=== PATIENT | male | born 1940 | race Caucasian/White ===

== ENCOUNTER 2018-04-08 20:00 | Inpatient (IN) | payer MEDICARE ==
[2018-04-08] MEDS ORDERED: Ondansetron PF 4 MG/2 ML Vial IVP PRN (22:52)
[2018-04-08] MEDS ORDERED: Acetaminophen 325 MG TAB PO PRN (22:52)
[2018-04-08] MEDS ORDERED: Ondansetron ODT 4 MG TAB SL PRN (22:52)
[2018-04-09 00:15] VITALS: BMI 29.7
[2018-04-09] MEDS: cefTRIAXone\\ROCEPHIN 1 GM in Sodium Chloride 0.9% 100 ML IVPB SCH (01:59)
[2018-04-09 05:20] LABS: #Eosinphils 0.1 thou/uL (0.0-0.7); #Lymphocytes 1.2 thou/uL (1.20-3.40); #Neutrophils 6.4 thou/uL (1.40-6.50); %Basophils 0.1 % (0.0-1.0); %Eosinophils 0.9 % (0.0-10.0); %Lymphocytes 13.8 % (21.0-51.0); %Monocytes 11.7 % (0.0-10.0); %Neutrophils 73.6 % (42.0-75.0); Hemoglobin 9.4 g/dL (14.0-18.0); Mean Corpuscular HGB CONC 32.7 g/dL (32.0-36.0); Mean Platelet Volume 6.5 fL (7.4-10.4); Platelet Count 267 thou/uL (130-400); RBC Distribution Width 13.1 % (11.5-14.5); Red Blood Cell (RBC) Count 2.77 mill/uL (4.70-6.10); White Blood Cell (WBC) Count 8.7 thou/uL (4.8-10.8)
[2018-04-09 05:40] LABS: Anion Gap 14 mmol/L (10-20); BUN (Urea Nitrogen) 20 mg/dL (8.4-25.7); Calc. Creatinine Clearance 106 mL/min (70-130); Calcium 8.2 mg/dL (7.8-10.44); Carbon Dioxide 21 mmol/L (23-31); Chloride 108 mmol/L (98-107); Estimated GFR-MDRD Greater than 90; Glucose 85 mg/dL (83-110); Potassium 3.9 mmol/L (3.5-5.1); Sodium 139 mmol/L (136-145)
--- NOTE | 2018-04-09 06:19 | HP ---
PRIMARY CARE PHYSICIAN: Dr. Yash Garza. CODE STATUS: Full code. TIME OF EVALUATION: 9:00 p.m. CHIEF COMPLAINT: Shortness of breath. HISTORY OF PRESENT ILLNESS: This is a 77-year-old male patient with past medical history of Parkinson disease. The patient came to the hospital after having chest pain associated with shortness of breath. Shingles were [id number] with no clear triggers, no alleviating factors. Also, the patient reported that he was spitting up of some blood. Symptoms have been present for the past 2 to 3 days and has been gradually getting worse. REVIEW OF SYSTEMS: CONSTITUTIONAL: No fever, chills, or generalized weakness. RESPIRATORY: The patient has cough, sputum production, shortness of breath. CARDIOVASCULAR: No chest pain or palpitation. GASTROINTESTINAL: No nausea, no vomiting, diarrhea, or abdominal pain. HEARING DOG TRAINER: No dizziness, headache, or feeling lightheaded. GENITOURINARY: No burning on urination. EXTREMITIES: No leg swelling. All other systems were reviewed and negative except for the findings mentioned above. PAST MEDICAL HISTORY: Positive for high cholesterol, Parkinson's, hypertension , and BPH. PAST SURGICAL HISTORY: Colon. PSYCHIATRIC HISTORY: No previous psych history. SOCIAL HISTORY: No drugs, no alcohol, no smoking history. FAMILY HISTORY: Reviewed and noncontributory for current presentation. ALLERGIES: KNOWN ALLERGIES TO PENICILLIN. REPORTED MEDICATIONS: 1. Lovastatin. 2. Ranexa. 3. Metoprolol. 4. Losartan. 5. Amlodipine. 6. Zetia. 7. Carbidopa/levodopa. 8. Amantadine. 9. Tamsulosin. 10. Donepezil. 11. Finasteride. 12. Aspirin. PHYSICAL EXAMINATION: VITAL SIGNS: On presentation, blood pressure 112/67, heart rate 65, respiratory rate was 18, temperature 98, and oxygen saturation was 96 on room air. GENERAL APPEARANCE: The patient is alert, oriented, not in acute distress. HEENT: Eyes, normal conjunctivae. Moist oral mucosa. Anicteric. No JVD. RESPIRATORY: Bilateral air entry. The patient has bilateral rales. No wheezing. Symmetric expansion. CARDIOVASCULAR: Normal rate, regular rhythm. No murmurs. No gallops. No edema. ABDOMEN: Soft. Normal bowel sounds. MUSCULOSKELETAL: Baseline range of motion and strength. No tenderness. SKIN: Warm, intact. No pallor, rash, or redness. EXTREMITIES: Peripheral pulses are present. Capillary refill seems to be intact. NEURO: No evidence of any new focal weakness. Baseline speech. Cranial nerves seems to be intact. PSYCHIATRIC: The patient is in good mood. No anxiety. Oriented, optimal judgment. LABORATORY DATA: Prior to transfer, labs were reviewed. The patient has sodium 140, potassium 4.4, chloride 107, CO2 of 27, anion gap 10, glucose level 93, BUN 21, creatinine 0.9, GFR 103, calcium 9.5. LFTs were negative. White count 10.1, RBC 2.9, hemoglobin 9.9, MCV 100.8, platelet counts 254. DIAGNOSTIC STUDIES: Chest x-ray was reviewed. The patient has right-sided pneumonia. No right rib fracture. ASSESSMENT AND PLAN: The patient was placed in the hospital with the following medical problems; 1. Right lower lobe pneumonia, seen on the chest x-ray. The patient is being started on antibiotics, following the cultures, and adjust treatment as per sensitivity. 2. History of Parkinson disease. The patient will need to restart his Parkinson 's medications, We will reconcile and adjust as needed. 3. Controlled hypertension, reconcile home meds, adjust treatment as needed. 4. History of benign prostatic hyperplasia, reconcile home meds, adjust treatment as needed. 5. Deep venous thromboses prophylaxis. Job ID: [id number] MTDD
[2018-04-09] MEDS: Enoxaparin Sodium 40 MG/0.4 ML SYRINGE SC SCH ×2 (07:45→10:23)
[2018-04-09] MEDS ORDERED: Prevnar 13-Val Conj/PF 0.5 ML SYRINGE IM ONE (09:00)
[2018-04-09] MEDS ORDERED: Bisacodyl 5 MG TAB PO PRN (11:54)
[2018-04-09] MEDS ORDERED: Polyethylene Glycol 3350 17 GM Packet PO PRN (11:54)
[2018-04-09] MEDS: ALPRAZolam 0.25 MG TAB PO PRN ×2 (13:53→22:01)
[2018-04-09] MEDS: Azithromycin 500 MG in Sodium Chloride 0.9% 250 ML 250 ML IVPB SCH (13:55)
[2018-04-09] MEDS ORDERED: Carbidopa/Levodopa 25-100 mg Tablet PO SCH (15:00)
--- NOTE | 2018-04-09 15:30 | PDOC.PN ---
- Subjective Encounter Start Date: 04/09/18 Encounter Start Time: 11:50 Feels some better sitting up. His says he forgets that he can't walk and will walk past his walker then fall. Fell on and hit right side of chest, but was already feeling bad prior to that. Anxiety is not new, but problematic right now. - Objective Resuscitation Status - Order Detail: 04/09/18 00:09 Resuscitation Status Routine Resuscitation Status: FULL: Full Resuscitation Vital Signs & Weight: Vital Signs (12 hours) Temp Pulse Resp BP Pulse Ox 04/09/18 12:35 98.7 F 74 20 114/61 95 04/09/18 11:38 72 20 98 04/09/18 11:15 89 20 95 04/09/18 11:00 26 H 88 L 04/09/18 07:33 98.4 F 74 20 134/76 93 L 04/09/18 04:00 98.7 F 70 20 132/75 93 L Weight Weight 201 lb 4.513 oz Result Diagrams: 04/09/18 04:59 04/09/18 04:59 Phys Exam - Physical Examination Constitutional: NAD Rales and decreased BS at right base. OTW clear. Cardiovascular: RRR, no significant murmur, no rub Gastrointestinal: soft, non-tender, no distention, positive bowel sounds Modest TTP right ant ribs. No bruising. PD tremor. Deviation from normal: Very slightly anxious, but fairly normal. Dx/Plan (1) Pneumonia Code(s): J18.9 - PNEUMONIA, UNSPECIFIED ORGANISM Status: Acute (2) Parkinson disease Code(s): G20 - PARKINSON'S DISEASE Status: Acute (3) Anxiety Code(s): F41.9 - ANXIETY DISORDER, UNSPECIFIED Status: Acute (4) Hypertension Code(s): I10 - ESSENTIAL (PRIMARY) HYPERTENSION Status: Acute (5) Hyperlipidemia Code(s): E78.5 - HYPERLIPIDEMIA, UNSPECIFIED Status: Acute - Plan * Continue IV abx. * Add some xanax. * Resume home meds. * May take his own home meds.
[2018-04-09] MEDS: Amantadine HCl 100 mg Capsule PO SCH ×2 (15:53→20:44)
[2018-04-09] MEDS: Atorvastatin Calcium 40 MG TAB PO SCH (20:44)
[2018-04-09] MEDS: Amlodipine 5 MG TAB PO SCH (20:44)
[2018-04-09] MEDS: Carbidopa/Levodopa CR 50-200 mg Tablet PO SCH (20:45)
[2018-04-09] MEDS: Senokot S 8.6-50 MG TAB PO SCH (20:45)
[2018-04-09] MEDS: Melatonin 3 MG TAB PO SCH (20:45)
[2018-04-09] MEDS: Ezetimibe 10 MG TAB PO SCH (20:45)
[2018-04-09] MEDS: Donepezil HCl 5 MG TAB PO SCH (20:45)
[2018-04-09] MEDS: Finasteride 5 MG TAB PO SCH (20:45)
[2018-04-09] MEDS: Tamsulosin HCl 0.4 MG CAP PO SCH (20:46)
[2018-04-10] MEDS: cefTRIAXone\\ROCEPHIN 1 GM in Sodium Chloride 0.9% 100 ML IVPB SCH (00:50)
[2018-04-10 07:42] LABS: #Eosinphils 0.1 thou/uL (0.0-0.7); #Lymphocytes 1.3 thou/uL (1.20-3.40); #Neutrophils 7.1 thou/uL (1.40-6.50); %Basophils 0.3 % (0.0-1.0); %Eosinophils 1.2 % (0.0-10.0); %Lymphocytes 13.6 % (21.0-51.0); %Monocytes 10.6 % (0.0-10.0); %Neutrophils 74.4 % (42.0-75.0); Hemoglobin 9.6 g/dL (14.0-18.0); Mean Corpuscular HGB CONC 32.4 g/dL (32.0-36.0); Mean Corpuscular Hemoglobin 34.3 pg (27.0-31.0); Mean Platelet Volume 6.5 fL (7.4-10.4); Platelet Count 268 thou/uL (130-400); RBC Distribution Width 12.9 % (11.5-14.5); Red Blood Cell (RBC) Count 2.81 mill/uL (4.70-6.10); White Blood Cell (WBC) Count 9.6 thou/uL (4.8-10.8)
[2018-04-10 07:58] LABS: Anion Gap 13 mmol/L (10-20); BUN (Urea Nitrogen) 18 mg/dL (8.4-25.7); Calc. Creatinine Clearance 105 mL/min (70-130); Calcium 8.5 mg/dL (7.8-10.44); Carbon Dioxide 23 mmol/L (23-31); Chloride 107 mmol/L (98-107); Estimated GFR-MDRD Greater than 90; Glucose 92 mg/dL (83-110); Sodium 139 mmol/L (136-145)
[2018-04-10] MEDS: Amantadine HCl 100 mg Capsule PO SCH ×3 (08:49→20:43)
[2018-04-10] MEDS: Carbidopa/Levodopa 25-100 mg Tablet PO SCH ×3 (08:50→15:25)
--- NOTE | 2018-04-10 08:52 | RAD ---
CHEST TWO VIEWS: HISTORY: Pneumonia. COMPARISON: 04/08/2018 FINDINGS: Normal cardiac silhouette. There is atherosclerosis of the aorta. The pulmonary vessels are within normal limits. There is persistent fullness in the right hilum, as well as a right and to lesser ext ent left perihilar interstitial opacity. Focal alveolar infiltrate in the right suprahilar region an d right infrahilar region is noted. The degree of opacification in the right lung base has slightly improved. The costophrenic angles are minimally blunted. Hyperinflation is noted. No pneumothorax. Mild loss of vertebral body height at approximately the T11 level with resultant kyphosis. IMPRESSION: Improving right and, to a lesser extent, left lung pneumonia. Continued surveillance to ensure resol ution is recommended. Of note, there is fullness in the right hilum, which may be secondary to an in fectious or inflammatory process. In the appropriate clinical setting, a right hilar mass cannot be excluded. If current pneumonia does not completely resolve, CT is recommended. POS: ROMI
[2018-04-10] MEDS ORDERED: ALPRAZolam 0.25 MG TAB PO SCH (09:30)
[2018-04-10] MEDS: Enoxaparin Sodium 40 MG/0.4 ML SYRINGE SC SCH (09:57)
[2018-04-10] MEDS: Senokot S 8.6-50 MG TAB PO SCH ×2 (09:57→20:38)
--- NOTE | 2018-04-10 12:33 | PDOC.PN ---
- Subjective Encounter Start Date: 04/10/18 Encounter Start Time: 11:50 Doing some better, but still SOB at times. Still has mild cough and some right rib pain. No other complaints. Denies coughing or choking with eating. - Objective Resuscitation Status - Order Detail: 04/09/18 00:09 Resuscitation Status Routine Resuscitation Status: FULL: Full Resuscitation Vital Signs & Weight: Vital Signs (12 hours) Temp Pulse Resp BP Pulse Ox 04/10/18 08:00 94 L 04/10/18 07:21 98.3 F 63 18 118/71 94 L Weight Weight 201 lb 4.513 oz I&O: 04/09/18 04/10/18 04/11/18 06:59 06:59 06:59 Intake Total 520 Balance 520 Result Diagrams: 04/10/18 07:15 04/10/18 07:15 Radiology Reviewed by me: Yes Phys Exam - Physical Examination Constitutional: NAD Respiratory: no wheezing Mild scattered rales, R>L Cardiovascular: RRR, no significant murmur, no rub Gastrointestinal: soft, non-tender, no distention, positive bowel sounds Musculoskeletal: no edema, pulses present TTP right anterolateral ribs PD tremor. Psychiatric: normal affect, A&O x 3 Dx/Plan (1) Pneumonia Code(s): J18.9 - PNEUMONIA, UNSPECIFIED ORGANISM Status: Acute (2) Parkinson disease Code(s): G20 - PARKINSON'S DISEASE Status: Acute (3) Anxiety Code(s): F41.9 - ANXIETY DISORDER, UNSPECIFIED Status: Acute (4) Hypertension Code(s): I10 - ESSENTIAL (PRIMARY) HYPERTENSION Status: Acute (5) Hyperlipidemia Code(s): E78.5 - HYPERLIPIDEMIA, UNSPECIFIED Status: Acute - Plan * .
[2018-04-10] MEDS: Azithromycin 500 MG in Sodium Chloride 0.9% 250 ML 250 ML IVPB SCH (15:26)
--- NOTE | 2018-04-10 15:58 | RAD ---
RIGHT RIBS 3 VIEWS: HISTORY: Right rib pain following an injury, followup right lung pneumonia. FINDINGS: There is some motion artifact. Patchy alveolar parenchymal change noted in the right mid and upper l ofe zone with small right pleural effusion, stable from 04/10/2018 chest x-ray. There is some irregul arity of the right 10th anterior rib near the costochondral junction which certainly could represent a fracture. No pneumothorax or pleural effusion. No pneumothorax or pleural effusion. IMPRESSION: Stable patchy alveolar pneumonia in the right mid and upper lung zone. Minimal irregularity of the d istal 10th rib near the costochondral junction region which certainly could represent a very minimall y displaced fracture. No pneumothorax or pleural effusion. POS: TPC
[2018-04-10] MEDS: ALPRAZolam 0.25 MG TAB PO PRN (20:38)
[2018-04-10] MEDS: Amlodipine 5 MG TAB PO SCH (20:43)
[2018-04-10] MEDS: Atorvastatin Calcium 40 MG TAB PO SCH (20:44)
[2018-04-10] MEDS: Carbidopa/Levodopa CR 50-200 mg Tablet PO SCH (20:44)
[2018-04-10] MEDS: Donepezil HCl 5 MG TAB PO SCH (20:44)
[2018-04-10] MEDS: Finasteride 5 MG TAB PO SCH (20:45)
[2018-04-10] MEDS: Losartan 25 MG TAB PO SCH (20:45)
[2018-04-10] MEDS: Ezetimibe 10 MG TAB PO SCH (20:45)
[2018-04-10] MEDS: Melatonin 3 MG TAB PO SCH (20:45)
[2018-04-10] MEDS: Tamsulosin HCl 0.4 MG CAP PO SCH (20:46)
[2018-04-11] MEDS: cefTRIAXone\\ROCEPHIN 1 GM in Sodium Chloride 0.9% 100 ML IVPB SCH (00:17)
[2018-04-11] MEDS: Amantadine HCl 100 mg Capsule PO SCH ×3 (07:46→20:49)
[2018-04-11] MEDS: Carbidopa/Levodopa 25-100 mg Tablet PO SCH ×3 (07:46→14:08)
[2018-04-11] MEDS: Enoxaparin Sodium 40 MG/0.4 ML SYRINGE SC SCH (09:20)
[2018-04-11] MEDS: ALPRAZolam 0.25 MG TAB PO PRN ×2 (09:21→18:34)
[2018-04-11] MEDS: Senokot S 8.6-50 MG TAB PO SCH ×2 (09:21→20:46)
[2018-04-11] MEDS: Azithromycin 500 MG in Sodium Chloride 0.9% 250 ML 250 ML IVPB SCH (14:29)
--- NOTE | 2018-04-11 18:42 | PDOC.PN ---
- Subjective Encounter Start Date: 04/11/18 Encounter Start Time: 12:00 Doing well. Breathing better. - Objective Resuscitation Status - Order Detail: 04/09/18 00:09 Resuscitation Status Routine Resuscitation Status: FULL: Full Resuscitation Vital Signs & Weight: Vital Signs (12 hours) Temp Pulse Resp BP Pulse Ox 04/11/18 17:10 78 24 H 94 L 04/11/18 14:30 96 04/11/18 11:04 63 22 H 98 04/11/18 08:00 96 04/11/18 07:53 98.2 F 64 20 108/62 96 Weight Weight 201 lb 4.513 oz I&O: 04/10/18 04/11/18 04/12/18 06:59 06:59 06:59 Intake Total 520 420 Output Total 200 Balance 520 220 Result Diagrams: 04/10/18 07:15 04/10/18 07:15 Phys Exam - Physical Examination Constitutional: NAD Respiratory: no wheezing, no rhonchi, clear to auscultation bilateral Rales right anterior chest. Cardiovascular: RRR, no significant murmur, no rub Gastrointestinal: soft, non-tender, no distention, positive bowel sounds Musculoskeletal: no edema Neurological: non-focal PD tremor Psychiatric: normal affect, A&O x 3 Dx/Plan (1) Pneumonia Code(s): J18.9 - PNEUMONIA, UNSPECIFIED ORGANISM Status: Acute (2) Parkinson disease Code(s): G20 - PARKINSON'S DISEASE Status: Acute (3) Anxiety Code(s): F41.9 - ANXIETY DISORDER, UNSPECIFIED Status: Acute (4) Hypertension Code(s): I10 - ESSENTIAL (PRIMARY) HYPERTENSION Status: Acute (5) Hyperlipidemia Code(s): E78.5 - HYPERLIPIDEMIA, UNSPECIFIED Status: Acute - Plan * .
[2018-04-11] MEDS: Atorvastatin Calcium 40 MG TAB PO SCH (20:49)
[2018-04-11] MEDS: Carbidopa/Levodopa CR 50-200 mg Tablet PO SCH (20:49)
[2018-04-11] MEDS: Ezetimibe 10 MG TAB PO SCH (20:49)
[2018-04-11] MEDS: Donepezil HCl 5 MG TAB PO SCH (20:49)
[2018-04-11] MEDS: Amlodipine 5 MG TAB PO SCH (20:49)
[2018-04-11] MEDS: Tamsulosin HCl 0.4 MG CAP PO SCH (20:50)
[2018-04-11] MEDS: Losartan 25 MG TAB PO SCH (20:50)
[2018-04-11] MEDS: Finasteride 5 MG TAB PO SCH (20:50)
[2018-04-11] MEDS: Melatonin 3 MG TAB PO SCH (20:50)
[2018-04-12] MEDS: ALPRAZolam 0.25 MG TAB PO PRN ×4 (02:47→22:29)
[2018-04-12] MEDS: Carbidopa/Levodopa 25-100 mg Tablet PO SCH ×3 (06:11→13:50)
[2018-04-12 06:30] LABS: #Eosinphils 0.1 thou/uL (0.0-0.7); #Monocytes 0.7 thou/uL (0.11-0.59); #Neutrophils 6.4 thou/uL (1.40-6.50); %Basophils 0.3 % (0.0-1.0); %Eosinophils 1.4 % (0.0-10.0); %Lymphocytes 11.6 % (21.0-51.0); %Monocytes 8.8 % (0.0-10.0); %Neutrophils 77.9 % (42.0-75.0); Hemoglobin 9.2 g/dL (14.0-18.0); Mean Corpuscular HGB CONC 33.8 g/dL (32.0-36.0); Mean Corpuscular Hemoglobin 34.9 pg (27.0-31.0); Mean Platelet Volume 6.4 fL (7.4-10.4); Platelet Count 273 thou/uL (130-400); RBC Distribution Width 12.6 % (11.5-14.5); Red Blood Cell (RBC) Count 2.62 mill/uL (4.70-6.10); White Blood Cell (WBC) Count 8.2 thou/uL (4.8-10.8)
[2018-04-12 06:48] LABS: Anion Gap 13 mmol/L (10-20); BUN (Urea Nitrogen) 15 mg/dL (8.4-25.7); Calc. Creatinine Clearance 106 mL/min (70-130); Calcium 8.2 mg/dL (7.8-10.44); Carbon Dioxide 25 mmol/L (23-31); Chloride 107 mmol/L (98-107); Estimated GFR-MDRD Greater than 90; Glucose 95 mg/dL (83-110); Potassium 4.1 mmol/L (3.5-5.1); Sodium 141 mmol/L (136-145)
[2018-04-12 06:52] LABS: Iron 24 ug/dL (65-175); Iron Binding Capacity, Total 184 mcg/dL (261-462)
[2018-04-12 07:23] LABS: Folate (Folic Acid) 5.6 ng/mL (7.0-31.4)
[2018-04-12] MEDS: Amantadine HCl 100 mg Capsule PO SCH ×3 (07:40→22:29)
[2018-04-12] MEDS: Enoxaparin Sodium 40 MG/0.4 ML SYRINGE SC SCH (08:11)
[2018-04-12] MEDS: Senokot S 8.6-50 MG TAB PO SCH ×2 (08:11→22:29)
--- NOTE | 2018-04-12 15:53 | PDOC.PN ---
- Subjective Encounter Start Date: 04/12/18 Encounter Start Time: 11:30 Continues to do better. - Objective Resuscitation Status - Order Detail: 04/09/18 00:09 Resuscitation Status Routine Resuscitation Status: FULL: Full Resuscitation Vital Signs & Weight: Vital Signs (12 hours) Temp Pulse Resp BP Pulse Ox 04/12/18 08:44 97.6 F 61 18 102/63 95 04/12/18 08:00 95 04/12/18 05:05 97.8 F 62 20 128/71 95 Weight Weight 201 lb 4.513 oz I&O: 04/11/18 04/12/18 04/13/18 06:59 06:59 06:59 Intake Total 420 720 Output Total 200 Balance 220 720 Result Diagrams: 04/12/18 05:54 04/12/18 05:54 Phys Exam - Physical Examination Constitutional: NAD Respiratory: no wheezing, no rhonchi Rales in RML auscultated on R ant chest. Clear posteriorly. Cardiovascular: RRR, no significant murmur Gastrointestinal: soft, non-tender, no distention, positive bowel sounds Musculoskeletal: no edema PD tremor. Psychiatric: normal affect, A&O x 3 Dx/Plan (1) Acute respiratory failure with hypoxia Code(s): J96.01 - ACUTE RESPIRATORY FAILURE WITH HYPOXIA Status: Acute (2) Pneumonia Code(s): J18.9 - PNEUMONIA, UNSPECIFIED ORGANISM Status: Acute (3) Parkinson disease Code(s): G20 - PARKINSON'S DISEASE Status: Acute (4) Anxiety Code(s): F41.9 - ANXIETY DISORDER, UNSPECIFIED Status: Acute (5) Hypertension Code(s): I10 - ESSENTIAL (PRIMARY) HYPERTENSION Status: Acute (6) Hyperlipidemia Code(s): E78.5 - HYPERLIPIDEMIA, UNSPECIFIED Status: Acute (7) Macrocytic anemia with vitamin B12 deficiency Code(s): D51.9 - VITAMIN B12 DEFICIENCY ANEMIA, UNSPECIFIED Status: Acute (8) Iron deficiency Code(s): E61.1 - IRON DEFICIENCY Status: Acute - Plan * Tried to get home oxygen set up so the patient could discharge, but denied by insurance based on the diagnosis of pneumonia. * Will continue abx, nebs, oxygen. * Continue PO levaquin. * continue to ambulate. * Patient is aware of the diagnosis of B12 deficiency. He was on shots, but stopped after the first one. * Has iron deficiency as well. Had a colonoscopy recently.
[2018-04-12] MEDS: Donepezil HCl 5 MG TAB PO SCH (22:30)
[2018-04-12] MEDS: Ezetimibe 10 MG TAB PO SCH (22:30)
[2018-04-12] MEDS: Atorvastatin Calcium 40 MG TAB PO SCH (22:30)
[2018-04-12] MEDS: Amlodipine 5 MG TAB PO SCH (22:30)
[2018-04-12] MEDS: Carbidopa/Levodopa CR 50-200 mg Tablet PO SCH (22:30)
[2018-04-12] MEDS: Losartan 25 MG TAB PO SCH (22:31)
[2018-04-12] MEDS: Melatonin 3 MG TAB PO SCH (22:31)
[2018-04-12] MEDS: Finasteride 5 MG TAB PO SCH (22:31)
[2018-04-12] MEDS: Tamsulosin HCl 0.4 MG CAP PO SCH (22:32)
[2018-04-13] MEDS: Amantadine HCl 100 mg Capsule PO SCH ×2 (07:14→07:21)
[2018-04-13] MEDS: Carbidopa/Levodopa 25-100 mg Tablet PO SCH ×3 (07:14→10:45)
[2018-04-13] MEDS ORDERED: Ferrous Sulfate 325 MG TAB PO SCH (08:00)
[2018-04-13] MEDS: ALPRAZolam 0.25 MG TAB PO PRN ×2 (08:22→13:16)
[2018-04-13] MEDS: Enoxaparin Sodium 40 MG/0.4 ML SYRINGE SC SCH (08:25)
[2018-04-13] MEDS: Senokot S 8.6-50 MG TAB PO SCH (08:27)
[2018-04-13] MEDS ORDERED: Folic Acid 1 MG TAB PO SCH (09:00)
[2018-04-13 11:27] VITALS: BP 117/66; TEMP 97.8
== END 2018-04-13 13:24 | disposition home health service (06) | DRG 193 ==
LOC: ERS 20:00 → T4-A 21:17
PROVIDERS: ADMIT Hospitalist; ATTEND Hospitalist
DX: J18.1 Lobar pneumonia, unspecified organism (principal); J96.01 Acute respiratory failure with hypoxia; G20 Parkinson's disease; I10 Essential (primary) hypertension; N40.0 Benign prostatic hyperplasia without lower urinary tract symptoms; F41.9 Anxiety disorder, unspecified; E78.5 Hyperlipidemia, unspecified; D51.9 Vitamin B12 deficiency anemia, unspecified; E61.1 Iron deficiency; Z79.82 Long term (current) use of aspirin
CPT/HCPCS: 36415; 71046; 80048; 82607; 82746; 83540; 83550; 85025; 90471; 90670; 94640; 94760; G0009; J0456; J0696; J1650; J7050; J7620